=== PATIENT | male | born 1980 | race Caucasian/White ===

== ENCOUNTER 2017-01-04 19:28 | Emergency (ER) | payer SELFPAY ==
[2017-01-04 19:32] VITALS: BP 116/72; PULSE 91; TEMP 97.8; BMI 28.3
--- NOTE | 2017-01-04 19:37 | PDOC ---
History of Present Illness - General Chief Complaint: Injury Stated Complaint: LFT FINGER INJURY Time Seen by Provider: 01/04/17 19:36 History Source: Patient - History of Present Illness Occurred: reports: just prior to arrival Upper Extremity Pain Location: left: 2nd finger Past History - Past Medical History Allergies/Adverse Reactions: Allergies Allergy/AdvReac Type Severity Reaction Status Date / Time No Known Allergies Allergy Verified 01/04/17 19:30 Home Medications: Ambulatory Orders NK [No Known Home Medication] 01/04/17 - Surgical History Appendectomy: Yes (10/10/15) - Psycho/Social/Smoking Cessation Hx Anxiety: Yes Suicidal Ideation: No Smoking History: Never smoked Have you smoked in the past 12 months: No Hx Alcohol Use: No Drug/Substance Use Hx: No Substance Use Type: None Hx Substance Use Treatment: No Review of Systems - Review of Systems Musculoskeletal: Yes: Joint Pain, Joint Swelling *Physical Exam - Vital Signs Last Vital Signs Temp Pulse Resp BP Pulse Ox 97.8 F 91 H 18 116/72 88 L 01/04/17 19:31 01/04/17 19:31 01/04/17 19:31 01/04/17 19:31 01/04/17 19:31 - Physical Exam General Appearance: Yes: Appropriately Dressed. No: Apparent Distress Neck: positive: Supple Respiratory/Chest: negative: Respiratory Distress Musculoskeletal: positive: Other (+deformity to DIPJ of L index) Integumentary: positive: Dry, Warm Neurologic: positive: Fully Oriented, Alert, Normal Mood/Affect Procedures - Joint Reduction Left Joint Reduction Site: left: Finger Pre-Procedure NV Exam: normal Finger Block: Index Anesthetic: 1% Lidocaine Amount (mL): 5 Procedure: Other (traction and dorsal pressure) Post-Procedure NV Exam: FROMI Complications: No Post Joint Reduction Film: joint reduced Splint: Yes ED Treatment Course - RADIOLOGY Radiology Studies Ordered: Category Date Time Status FINGER(S) LEFT [RAD] Stat Radiology 01/04/17 19:36 Ordered Medical Decision Making - Medical Decision Making 01/04/17 19:37 36 yo M, no sig hx, p/w L index injury after striking finger on another's individual's knee while playing sports ~4 hrs ago. Has deformity to PIP joint on exam concerning for dislocation -meds -xr 01/04/17 19:58 01/04/17 20:01 01/04/17 20:13 01/04/17 20:30 Finger successfully reduced s/p digital block w/ gentle traction and dorsal pressure w/ good reduction on post reduc film. Splint placed and pt given orthopedic f/u 01/04/17 20:32 *DC/Admit/Observation/Transfer Diagnosis at time of Disposition: Dislocated finger Qualifiers: Encounter type: initial encounter Qualified Code(s): S63.259A - Unspecified dislocation of unspecified finger, initial encounter - Discharge Dispostion Disposition: HOME Condition at time of disposition: Improved - Referrals Referrals: Deandre Wilkins MD [Staff Physician] - - Patient Instructions Printed Discharge Instructions: Finger Dislocation Additional Instructions: Please keep splint in place and follow up with Dr Wilkins of orthopedics in 1 week Take motrin for pain
[2017-01-04] MEDS ORDERED: IBUPROFEN 400 MG TABLET (FP) PO ONE ×2 (19:57→19:58)
== END 2017-01-04 20:40 | disposition home or self-care (01) ==
LOC: JERFT 19:28
PROC: 0RSXXZZ Reposition Left Finger Phalangeal Joint, External Approach (ICD-10-PCS; principal; 2017-01-04)
PROC: 2W3KX1Z Immobilization of Left Finger using Splint (ICD-10-PCS; 2017-01-04)
DX: S63.271A Dislocation of unspecified interphalangeal joint of left index finger, initial encounter (principal); W51.XXXA Accidental striking against or bumped into by another person, initial encounter; Y93.79 Activity, other specified sports and athletics; Y92.89 Other specified places as the place of occurrence of the external cause; Y99.8 Other external cause status
CPT/HCPCS: 73140-TC-LT; 99281-25